=== PATIENT | male | born 1960 | race American Indian/Alaskan Native ===

== ENCOUNTER 2019-07-06 21:14 | Emergency (ER) | payer MEDICARE ==
--- NOTE | 2019-07-06 21:47 | Emergency Department Report ---
Blank Doc - Documentation Documentation: 59-year-old male that presents with abdominal pain with n/v. This initial assessment/diagnostic orders/clinical plan/treatment(s) is/are subject to change based on patient's health status, clinical progression and re- assessment by fellow clinical providers in the ED. Further treatment and workup at subsequent clinical providers discretion. Patient/guardians urged not to elope from the ED as their condition may be serious if not clinically assessed and managed. Initial orders include: 1- Patient sent to [facility] for further evaluation and treatment 2- labs 3- UA
[2019-07-06 22:14] LABS: Basophils # (Auto) 0.2 K/mm3 (0.0-0.1); Eosinophils % (Auto) 0.5 % (0.0-4.3); Hematocrit 40.8 % (35.5-45.6); Hemoglobin 13.8 gm/dl (11.8-15.2); Lymphocytes # (Auto) 0.8 K/mm3 (1.2-5.4); Mean Corpuscular HGB Conc 34 % (32-34); Mean Corpuscular Volume 94 fl (84-94); Monocytes # (Auto) 0.4 K/mm3 (0.0-0.8); Monocytes % (Auto) 6.2 % (0.0-7.3); Platelet Count 175 K/mm3 (140-440); Red Blood Count 4.36 M/mm3 (3.65-5.03); Red Cell Distribution Width 17.7 % (13.2-15.2)
[2019-07-06 22:40] LABS: Alanine Aminotransferase 44 units/L (7-56); Albumin 4.5 g/dL (3.9-5); BUN/Creatinine Ratio 11; Blood Urea Nitrogen 9 mg/dL (9-20); Calcium 9.4 mg/dL (8.4-10.2); Hemolysis Index 8
[2019-07-07 00:56] LABS: Bilirubin,Urine NEG (Negative); Blood,Urine NEG (Negative); Color,Urine Amber (Yellow); Mucus,Urine 3+ /HPF
[2019-07-07] MEDS ORDERED: ONDANSETRON 4 MG/2 ML INJ IV ONE (00:58)
[2019-07-07] MEDS ORDERED: SODIUM CHLORIDE 0.9% 1000 ML 1,000 ML IV ONE (00:58)
--- NOTE | 2019-07-07 01:21 | Emergency Department Report ---
ED Abdominal Pain HPI - General Chief Complaint: Abdominal Pain Stated Complaint: ABD PAIN/CONSTIPATION Time Seen by Provider: 07/06/19 21:46 Source: patient Mode of arrival: Wheelchair Limitations: No Limitations - History of Present Illness Initial Comments: 59-year-old -[place] male presents to the emergency room complaining of abdominal pain for at least 1 week with worsening today. Patient reports that is burning and sharp in this across his upper abdomen. Patient had nausea and vomiting this morning. Patient reports has not had a BM since Saturday. Patient reports he has been belching a lot and does drink alcohol daily. Patient reports a past medical history of hypertension and is on disability for severe degenerative disc disease and PVD. MD Complaint: abdominal pain Location: epigastric Radiation: none Migration to: no migration Severity: severe Severity scale (0 -10): 10 Quality: sharp, burning Consistency: constant Improves With: nothing Worsens With: movement Associated Symptoms: nausea, vomiting, constipation - Related Data Previous Rx's Medication Instructions Recorded Last Taken Type Ondansetron [Zofran Odt] 4 mg PO Q8HR #12 tab.rapdis 07/07/19 Unknown Rx oxyCODONE /ACETAMINOPHEN [Percocet 1 tab PO Q6HR PRN #12 tablet 07/07/19 Unknown Rx 5/325 mg] Allergies Allergy/AdvReac Type Severity Reaction Status Date / Time No Known Allergies Allergy Verified 07/06/19 21:27 ED Review of Systems ROS: Stated complaint: ABD PAIN/CONSTIPATION Other details as noted in HPI Comment: All other systems reviewed and negative ED Past Medical Hx - Past Medical History Hx Hypertension: Yes Hx Arthritis: Yes Additional medical history: DJD - Surgical History Additional Surgical History: PVD - Social History Smoking Status: Current Every Day Smoker Substance Use Type: Alcohol (daily) - Medications Home Medications: Home Medications Medication Instructions Recorded Confirmed Last Taken Type Ondansetron [Zofran Odt] 4 mg PO Q8HR #12 tab.rapdis 07/07/19 Unknown Rx oxyCODONE /ACETAMINOPHEN [Percocet 1 tab PO Q6HR PRN #12 tablet 07/07/19 Unknown Rx 5/325 mg] ED Physical Exam - General Limitations: No Limitations General appearance: alert, in no apparent distress - Head Head exam: Present: atraumatic, normocephalic - Eye Eye exam: Present: normal appearance - ENT ENT exam: Present: mucous membranes moist - Respiratory Respiratory exam: Present: normal lung sounds bilaterally. Absent: respiratory distress - Cardiovascular Cardiovascular Exam: Present: regular rate, normal rhythm. Absent: systolic murmur, diastolic murmur, rubs, gallop - GI/Abdominal GI/Abdominal exam: Present: distended, tenderness, rigid, normal bowel sounds - Extremities Exam Extremities exam: Present: pedal edema - Neurological Exam Neurological exam: Present: alert, oriented X3 - Psychiatric Psychiatric exam: Present: normal affect, normal mood - Expanded Skin Exam Expanded Distribution of rash: RLE, LLE Description of rash: Present: other (date scale he bumpy dry skin with the leatherly appearance) ED Course Vital Signs 07/06/19 07/07/19 07/07/19 21:46 03:36 04:06 Temperature 98.6 F Pulse Rate 77 Respiratory 18 18 18 Rate Blood Pressure 147/91 Blood Pressure [Left] O2 Sat by Pulse 97 Oximetry 07/07/19 04:45 Temperature Pulse Rate 71 Respiratory 20 Rate Blood Pressure Blood Pressure 116/72 [Left] O2 Sat by Pulse 96 Oximetry ED Medical Decision Making - Lab Data Result diagrams: 07/06/19 21:57 07/06/19 21:57 - Radiology Data Radiology results: report reviewed Patient: TED MAXWELL MR#: [id number] : 1960 Acct:[id number] Age/Sex: 59 / M ADM Date: 07/06/19 Loc: ED Attending Dr: Ordering Physician: HAWA MAYS Date of Service: 07/07/19 Procedure(s): CT abdomen pelvis w con Accession Number(s): [id number] cc: HAWA MAYS CT OF THE ABDOMEN AND PELVIS WITH INTRAVENOUS CONTRAST INDICATION / CLINICAL INFORMATION: Mid abdominal pain, abdominal distention and elevated lipase.. TECHNIQUE: The patient received 100 cc Omnipaque [address] scans at this location are performed using CT dose reduction for ALARA by means of automated exposure control. COMPARISON: None available. FINDINGS: ABDOMEN: There is mild diffuse peripancreatic fluid extending inferiorly in both anterior pararenal spaces and also superiorly. The pancreas enhances normally. There are multiple calcified stones in the gallbladder. The gallbladder is normal in size without wall thickening or bile duct dilatation. There is moderate diffuse decreased density of the liver parenchyma compared to the spleen without focal lesion. The spleen, adrenal glands, kidneys and bowel demonstrate no significant abnormality. No adenopathy is seen. The lung bases are clear. PELVIS: The prostate gland is mildly enlarged. Mild diffuse thickening of the wall urinary bladder is likely related to hypertrophy. There is a trace amount of pelvic ascites. I see no evidence of diverticulitis or appendicitis. I do not identify a hernia. There is moderate lower lumbar spondylosis. IMPRESSION: 1. Mild to moderate acute, edematous interstitial pancreatitis. No complication is seen. 2. Cholelithiasis without evidence of choledocholithiasis. 3. Moderate diffuse fatty infiltration of the liver. Signer Name: Alex Levine MD Signed: 07/07/2019 2:00 AM Workstation Name: [id number] Transcribed By: RT Dictated By: Alex Levine MD Electronically Authenticated By: Alex Levine MD Signed Date/Time: 07/07/19199 DD/ 2 TD/TT: - Medical Decision Making 59-year-old -[place] male presents to the emergency room complaining of abdominal pain for at least 1 week with worsening today. Patient reports that is burning and sharp in this across his upper abdomen. Patient had nausea and vomiting this morning. Patient reports has not had a BM since Saturday. Patient reports he has been belching a lot and does drink alcohol daily. Patient reports a past medical history of hypertension and is on disability for severe degenerative disc disease and PVD. Critical care attestation.: If time is entered above; I have spent that time in minutes in the direct care of this critically ill patient, excluding procedure time. ED Disposition Clinical Impression: Pancreatitis, alcoholic, acute, Cholelithiasis Disposition: DC-01 TO HOME OR SELFCARE Is pt being admited?: No Does the pt Need Aspirin: No Condition: Stable Instructions: Pancreatitis (ED), Cholelithiasis (ED) Additional Instructions: Please refrain from alcohol and fatty foods. Follow-up with general surgeon. Prescriptions: oxyCODONE /ACETAMINOPHEN [Percocet 5/325 mg] 1 tab PO Q6HR PRN #12 tablet PRN Reason: Pain Ondansetron [Zofran Odt] 4 mg PO Q8HR #12 tab.rapdis [facility]-5 Days JOSE G SEGURA MD [Staff Physician] - 3-5 Days
--- NOTE | 2019-07-07 02:05 | Cat Scan Report ---
CT OF THE ABDOMEN AND PELVIS WITH INTRAVENOUS CONTRAST INDICATION / CLINICAL INFORMATION: Mid abdominal pain, abdominal distention and elevated lipase.. TECHNIQUE: The patient received 100 cc Omnipaque [address] scans at this location are performed using CT dose reduction for ALARA by means of automated exposure control. COMPARISON: None available. FINDINGS: ABDOMEN: There is mild diffuse peripancreatic fluid extending inferiorly in both anterior pararenal s paces and also superiorly. The pancreas enhances normally. There are multiple calcified stones in the gallbladder. The gallbladder is normal in size without wall thickening or bile duct dilatation. Ther e is moderate diffuse decreased density of the liver parenchyma compared to the spleen without focal lesion. The spleen, adrenal glands, kidneys and bowel demonstrate no significant abnormality. No adenopathy i s seen. The lung bases are clear. PELVIS: The prostate gland is mildly enlarged. Mild diffuse thickening of the wall urinary bladder is likely related to hypertrophy. There is a trace amount of pelvic ascites. I see no evidence of diver ticulitis or appendicitis. I do not identify a hernia. There is moderate lower lumbar spondylosis. IMPRESSION: 1. Mild to moderate acute, edematous interstitial pancreatitis. No complication is seen. 2. Cholelithiasis without evidence of choledocholithiasis. 3. Moderate diffuse fatty infiltration of the liver. Signer Name: Alex Levine MD Signed: 07/07/2019 2:00 AM Workstation Name: [id number]
[2019-07-07] MEDS ORDERED: MORPHINE 2 MG/1 ML INJ IV ONE (02:24)
[2019-07-07] MEDS ORDERED: MORPHINE 4 MG/1 ML INJ IV ONE (03:13)
[2019-07-07 06:23] VITALS: BP 116/72
== END 2019-07-07 04:45 | disposition home or self-care (01) ==
LOC: ED 21:14
DX: K85.20 Alcohol induced acute pancreatitis without necrosis or infection (principal); K80.20 Calculus of gallbladder without cholecystitis without obstruction; I10 Essential (primary) hypertension; M19.90 Unspecified osteoarthritis, unspecified site; F17.200 Nicotine dependence, unspecified, uncomplicated; Z79.899 Other long term (current) drug therapy; Z98.890 Other specified postprocedural states
CPT/HCPCS: 36415; 74177; 80053; 81001; 83690; 85025; 96361; 96374; 96375; 99284; J2270; J2405; J7030; Q9967